=== PATIENT | male | born 1960 | race Caucasian/White ===

== ENCOUNTER 2019-12-20 20:56 | Emergency (ER) | payer BC ==
[2019-12-20 21:14] LABS: Glucose,Whole Blood 148 mg/dL (75-99)
--- NOTE | 2019-12-20 21:20 | ED ---
SOB HPI - General Chief Complaint: Shortness of Breath Stated Complaint: YANI, Covid + Time Seen by Provider: 12/20/19 20:56 Source: patient, EMS Mode of arrival: EMS Limitations: no limitations - History of Present Illness Initial Comments: Patient is a 59-year-old male with past medical history of heart disease presents emergency department with difficulty breathing. EMS states that the patient was diagnosed with on the . He called EMS today as his breathing got worse. Denies history of underlying lung conditions to include asthma or COPD. Patient is not a smoker. Reports to fevers, chills, nausea, vomiting and diarrhea. Original pulse ox saturations were not obtained. Patient was placed on CPAP and the highest oxygenation obtained was 76%. Upon arrival to the emergency department the patient is evaluated. He is immediately placed on BiPAP because of this work of breathing. During his examination and is noted that the patient has complete neglect of his left side with left upper and left lower extremity weakness. This is discussed with EMS who states that the patient ambulated to the EMS himself. Patient had no neurologic deficits until arrival to the emergency department. This is discussed with the patient's and the patients son who I spoke with over the phone. Patient and son deny any history of strokes or chronic weakness. The patient is not on any blood thinners. He denies any chest pain. No ripping or tearing sensation to his back. No other alleviating, precipitating or modifying factors - Related Data Home Medications Medication Instructions Recorded Confirmed Aspirin EC [Ecotrin Low Dose] 81 mg PO DAILY 12/30/14 12/30/14 Omeprazole [PriLOSEC] 20 mg PO AC-BRKFST 12/30/14 12/30/14 Simvastatin [Zocor] 20 mg PO HS 12/30/14 12/30/14 atenoloL [Tenormin] 50 mg PO DAILY 12/30/14 12/30/14 Allergies Allergy/AdvReac Type Severity Reaction Status Date / Time Sulfa (Sulfonamide Allergy Unknown Verified 12/30/14 11:02 Antibiotics) Review of Systems ROS Statement: Those systems with pertinent positive or pertinent negative responses have been documented in the HPI. ROS Other: All systems not noted in ROS Statement are negative. Past Medical History Past Medical History: Hyperlipidemia, Hypertension History of Any Multi-Drug Resistant Organisms: None Reported Past Surgical History: Appendectomy, Hernia Repair, Tonsillectomy Past Psychological History: No Psychological Hx Reported Smoking Status: Never smoker Past Alcohol Use History: Rare Past Drug Use History: None Reported General Exam Limitations: no limitations General appearance: alert, in distress Head exam: Present: atraumatic, normocephalic, normal inspection Eye exam: Present: PERRL, other (Force deviated to the right) ENT exam: Present: mucous membranes dry, other (left sided facial droop) Neck exam: Present: normal inspection. Absent: tenderness, meningismus, lymphadenopathy Respiratory exam: Present: normal lung sounds bilaterally, respiratory distress, accessory muscle use. Absent: wheezes, rales, rhonchi, stridor Cardiovascular Exam: Present: normal rhythm, tachycardia GI/Abdominal exam: Present: soft, normal bowel sounds. Absent: distended, tenderness, guarding, rebound, rigid Extremities exam: Present: other (Paresis of the left upper extremity. Left lower extremity drifts) Course Vital Signs 12/20/19 12/20/19 12/20/19 20:57 21:00 21:10 Temperature 102.1 F H Pulse Rate 125 H 125 H Respiratory 50 H 50 H 50 H Rate Blood Pressure 157/103 147/93 O2 Sat by Pulse 96 Oximetry 12/20/19 12/20/19 12/20/19 21:30 21:45 22:30 Temperature 98.7 F Pulse Rate 131 H 117 H 115 H Respiratory 50 H 41 H 41 H Rate Blood Pressure 190/106 164/101 134/92 O2 Sat by Pulse 96 96 96 Oximetry - Reevaluation(s) Reevaluation #1: 12/20/19 21:[address] Boone in regards to patients symptoms Reevaluation #2: 12/20/19 21:25 Spoke with patients son. Patient and lives with girlfriend. Updated in regards to condition. Reevaluation #3: 12/20/19 21:[address] Boone. No CT read yet. He is unable to see CTA images. Will evaluate patient by stroke robot here shortly. No lab results available. Reevaluation #4: 12/20/19 22:05 Dr. Boone evaluated patient over stroke robot. Agreed to TPA administration. TPA ordered, pharmacy called. Consent obtained from patient Reevaluation #5: 12/20/19 22:[address] Boone. Not a thrombectomy candidate. I will arrange transfer to [facility]. TPA arrived to ED and is currently being administered. Spoke with Dr. Troy who accepted transfer 12/20/19 22:35 Medical Decision Making - Medical Decision Making Upon arrival patient is placed in a trauma bay 1. He is transitioned to BiPAP. It is noted on physical exam the patient has hemiparesis of the left side. NIH is evaluated in the patient scores a 20. We did activate a code stroke and the patient went over for CT angiography and non contrasted CT. I spoke with Dr. Arndt multiple times. Patient does have an area of developing ischemia on the right MCA therefore the patient is a TPA candidate. Patient does agree to these treatment options. He will be transferred to [facility]. Spoke with Dr. Troy who agrees to the transfer as well as Dr. Arndt who is accepting neuro applications support analyst. EMS was called and the patient will be transported in hemodynamically stable condition - Lab Data Result diagrams: 12/20/19 21:00 12/20/19 21:37 Lab Results 12/20/19 12/20/19 12/20/19 Range/Units 21:00 21:03 21:37 WBC 6.3 (3.8-10.6) k/uL RBC 5.90 (4.30-5.90) m/uL Hgb 16.6 (13.0-17.5) gm/dL Hct 50.6 (39.0-53.0) % MCV 85.7 (80.0-100.0) fL MCH 28.1 (25.0-35.0) pg MCHC 32.8 (31.0-37.0) g/dL RDW 12.8 (11.5-15.5) % Plt Count 212 (150-450) k/uL MPV 7.7 Neutrophils % 86 % Lymphocytes % 8 % Monocytes % 3 % Eosinophils % 0 % Basophils % 1 % Neutrophils # 5.4 (1.3-7.7) k/uL Lymphocytes # 0.5 L (1.0-4.8) k/uL Monocytes # 0.2 (0-1.0) k/uL Eosinophils # 0.0 (0-0.7) k/uL Basophils # 0.1 (0-0.2) k/uL PT 11.0 (9.0-12.0) sec INR 1.1 (<1.2) APTT 24.8 (22.0-30.0) sec D-Dimer 34.33 H (<0.60) mg/L FEU Sodium (137-145) mmol/L Potassium (3.5-5.1) mmol/L Chloride (98-107) mmol/L Carbon Dioxide (22-30) mmol/L Anion Gap mmol/L BUN (9-20) mg/dL Creatinine (0.66-1.25) mg/dL Est GFR (CKD-EPI)AfAm (>60 ml/min/1.73 sqM) Est GFR (CKD-EPI)NonAf (>60 ml/min/1.73 sqM) Glucose (74-99) mg/dL POC Glucose (mg/dL) 148 H (75-99) mg/dL POC Glu Wax Blender ID Verduzco, Claire Plasma Lactic Acid Jesse (0.7-2.0) mmol/L Calcium (8.4-10.2) mg/dL Magnesium (1.6-2.3) mg/dL Total Bilirubin (0.2-1.3) mg/dL AST (17-59) U/L ALT (4-49) U/L Alkaline Phosphatase (38-126) U/L Lactate Dehydrogenase (313-618) U/L Troponin I (0.000-0.034) ng/mL C-Reactive Protein (<10.0) mg/L Total Protein (6.3-8.2) g/dL Albumin (3.5-5.0) g/dL 12/20/19 12/20/19 12/20/19 Range/Units 21:37 21:37 21:37 WBC (3.8-10.6) k/uL RBC (4.30-5.90) m/uL Hgb (13.0-17.5) gm/dL Hct (39.0-53.0) % MCV (80.0-100.0) fL MCH (25.0-35.0) pg MCHC (31.0-37.0) g/dL RDW (11.5-15.5) % Plt Count (150-450) k/uL MPV Neutrophils % % Lymphocytes % % Monocytes % % Eosinophils % % Basophils % % Neutrophils # (1.3-7.7) k/uL Lymphocytes # (1.0-4.8) k/uL Monocytes # (0-1.0) k/uL Eosinophils # (0-0.7) k/uL Basophils # (0-0.2) k/uL PT (9.0-12.0) sec INR (<1.2) APTT (22.0-30.0) sec D-Dimer (<0.60) mg/L FEU Sodium 138 (137-145) mmol/L Potassium 3.8 (3.5-5.1) mmol/L Chloride 101 (98-107) mmol/L Carbon Dioxide 26 (22-30) mmol/L Anion Gap 11 mmol/L BUN 16 (9-20) mg/dL Creatinine 0.89 (0.66-1.25) mg/dL Est GFR (CKD-EPI)AfAm >90 (>60 ml/min/1.73 sqM) Est GFR (CKD-EPI)NonAf >90 (>60 ml/min/1.73 sqM) Glucose 157 H (74-99) mg/dL POC Glucose (mg/dL) (75-99) mg/dL POC Glu Wax Blender ID Plasma Lactic Acid Jesse 2.6 H* (0.7-2.0) mmol/L Calcium 8.9 (8.4-10.2) mg/dL Magnesium 2.3 (1.6-2.3) mg/dL Total Bilirubin 0.7 (0.2-1.3) mg/dL AST 75 H (17-59) U/L ALT 78 H (4-49) U/L Alkaline Phosphatase 98 (38-126) U/L Lactate Dehydrogenase 2392 H (313-618) U/L Troponin I <0.012 (0.000-0.034) ng/mL C-Reactive Protein 190.1 H (<10.0) mg/L Total Protein 7.5 (6.3-8.2) g/dL Albumin 3.8 (3.5-5.0) g/dL - EKG Data EKG Comments: EKG demonstrates sinus tachycardia with a ventricular rate of 123. CT interval 170. QRS 130. QTC of 440. Biventricular block. No acute ST segment elevations Disposition Clinical Impression: COVID-19, Left hemiparesis, Right-sided cerebrovascular accident (CVA) Disposition: OTHER INSTITUTION NOT DEFINED Condition: Serious Is patient prescribed a controlled substance at d/c from ED?: No Referrals: Micheal Salcedo MD [Primary Care Provider] - 1-2 days Time of Disposition: 22:36 - Out of Hospital Transfer - Req. Specs Out of Hospital Transfer - Requested Specifics: Other Emergency Center ([facility])
[2019-12-20] MEDS ORDERED: ACETAMINOPHEN TAB 500 MG TAB PO STA (21:36)
[2019-12-20 21:44] VITALS: TEMP 98.7
[2019-12-20] MEDS ORDERED: ONDANSETRON 4 MG/2 ML VIAL IVP STA (21:47)
[2019-12-20 21:57] LABS: Basophils # (A) 0.1 k/uL (0-0.2); Basophils % (A) 1 %; Eosinophils % (A) 0 %; HCT 50.6 % (39.0-53.0); HGB 16.6 gm/dL (13.0-17.5); Lymphocytes # (A) 0.5 k/uL (1.0-4.8); Lymphocytes % (A) 8 %; MCH 28.1 pg (25.0-35.0); MCHC 32.8 g/dL (31.0-37.0); MCV 85.7 fL (80.0-100.0); Mean Platelet Volume 7.7; Monocytes # (A) 0.2 k/uL (0-1.0); Monocytes % (A) 3 %; Neutrophils # (A) 5.4 k/uL (1.3-7.7); Neutrophils % (A) 86 %; Platelet Count 212 k/uL (150-450); RDW 12.8 % (11.5-15.5); WBC 6.3 k/uL (3.8-10.6)
[2019-12-20 22:01] LABS: ALT 78 U/L (4-49); AST 75 U/L (17-59); African American GFR (CKD) >90 (>60 ml/min/1.73 sqM); Albumin 3.8 g/dL (3.5-5.0); Alkaline Phosphatase 98 U/L (38-126); Anion Gap 11 mmol/L; Blood Urea Nitrogen 16 mg/dL (9-20); Calcium 8.9 mg/dL (8.4-10.2); Carbon Dioxide 26 mmol/L (22-30); Chloride 101 mmol/L (98-107); Glucose 157 mg/dL (74-99); Magnesium 2.3 mg/dL (1.6-2.3); Non-African American GFR(CKD) >90 (>60 ml/min/1.73 sqM); Potassium 3.8 mmol/L (3.5-5.1); Sodium 138 mmol/L (137-145); Total Bilirubin 0.7 mg/dL (0.2-1.3); Total Protein 7.5 g/dL (6.3-8.2)
[2019-12-20] MEDS ORDERED: Alteplase PER PHARMACY Stroke 1 EACH MISC MISCELLANE PRN (22:04)
[2019-12-20] MEDS ORDERED: ALTEPLASE 77 MG in EMPTY BAG 1 BAG IV ONE (22:10)
[2019-12-20] MEDS ORDERED: ALTEPLASE BOLUS 9 MG in EMPTY SYRINGE 1 SYR IV ONE (22:10)
[2019-12-20 22:11] LABS: INR 1.1 (<1.2)
[2019-12-20 22:12] LABS: Partial Thromboplastin Time 24.8 sec (22.0-30.0)
[2019-12-20 22:16] LABS: D-Dimer 34.33 mg/L FEU (<0.60)
[2019-12-20 22:17] LABS: C Reactive Protein 190.1 mg/L (<10.0); LDH 2392 U/L (313-618)
--- NOTE | 2019-12-20 22:42 | XR ---
EXAMINATION TYPE: XR chest 1V portable DATE OF EXAM: 12/20/2019 COMPARISON: NONE HISTORY: Altered mental status TECHNIQUE: Single view FINDINGS: There is diffuse airspace infiltrate in the left mid and lower lung field. The right lung i s fairly clear. There is thoracic dextroscoliosis. There is no heart failure. There are chest leads. IMPRESSION: There is left lower lobe pneumonia. No obvious heart failure.
[2019-12-20 22:46] VITALS: BP 141/89; PULSE 112; RESP 35
[2019-12-20] MEDS ORDERED: SODIUM CHLORIDE 0.9% 50 ML MINI-BAG IV ONE (23:04)
[2019-12-21 10:07] LABS: Ferritin 1543.2 ng/mL (22.0-322.0)
--- NOTE | 2019-12-22 08:21 | CT ---
EXAMINATION TYPE: CT angio head neck DATE OF EXAM: 12/20/2019 COMPARISON: None HISTORY: Lt side deficit. Pt covid + respiratory distress, attempted to keep head still with cushions , patient would not remain still. CT DLP: 697.3 mGycm Automated exposure control for dose reduction was used. CONTRAST: Performed with IV Contrast, patient injected with 65 mL of Isovue 370. Images were obtained from the aortic arch to the vertex of the brain with IV contrast and 3-D post pr ocessed images. Exam limited somewhat by motion. There is normal branching pattern of the great vessels on the aortic arch. There is arterial flow in both subclavian arteries. There is arterial flow in the common carot id arteries. There is a segment of the proximal right common carotid artery which shows very little c ontrast opacification. This is probably due to subtotal occlusion. The left carotid artery shows devine ncy of the bifurcation and mild plaque formation. There is less than 15% stenosis. There is arterial flow in both vertebral arteries. There is arterial flow in the vertebrobasilar artery system. Left ve rtebral artery is larger than the right. Basilar artery fills mostly from the left side. There is arterial flow in the anterior middle and posterior cerebral arteries. There is no mass effec t. I see no evidence of intracranial aneurysm or neovascularity. There is normal contrast enhancement of the intracranial venous sinuses. I see no evidence of intracranial arterial stenosis. There is no mass effect. 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 No evidence of any significant stenosis on the left side. No intracranial angiographic abnormality.
--- NOTE | 2019-12-22 08:22 | CT ---
EXAMINATION TYPE: CT brain wo con for TPA DATE OF EXAM: 12/20/2019 COMPARISON: None HISTORY: LT side deficit, stroke suspected CT DLP: 1176.8 mGycm Automated exposure control for dose reduction was used. There is 3 cm area of white matter and smith matter hypodensity right posterior superior temporal lobe consistent with acute infarct. There is no mass effect. There is no midline shift. There is no sign of intracranial hemorrhage. The calvarium is intact. There is prominent sulcus left posterior parieta l lobe consistent with atrophy. Sella turcica appears normal. There is 6 x 3 cm area of grade white matter hypodensity right posterior temporal lobe and occipital lobe consistent with acute infarct. There is no hemorrhage. IMPRESSION: There is evidence of acute infarct in the right temporal lobe and right occipital lobe. No hemorrhage seen.
== END 2019-12-20 23:10 | disposition other institution (70) ==
LOC: EC 20:56
DX: U07.1 COVID-19 (principal); I63.89 Other cerebral infarction; G81.92 Hemiplegia, unspecified affecting left dominant side; E78.5 Hyperlipidemia, unspecified; R29.720 NIHSS score 20; H51.8 Other specified disorders of binocular movement; R00.0 Tachycardia, unspecified; I10 Essential (primary) hypertension; Z79.899 Other long term (current) drug therapy; Z88.2 Allergy status to sulfonamides; Z90.89 Acquired absence of other organs
CPT/HCPCS: 99285; 96365; 96375; 36415; 94660; 93005; 85379; 80053; 82728; 83605; 83615; 83735; 84484; 85025; 85610; 85730; 86140; 87040; 84145; 71045; 70496; 70450; 70498; J2997; J2405; Q9967